=== PATIENT | male | born 1990 | race Caucasian/White ===

== ENCOUNTER 2024-04-02 12:33 | Outpatient (CLI) | payer OTHER | END 2024-04-02 23:59 | disposition home or self-care (01) | LOC: CARD DIAG 12:33 | PROVIDERS: ATTEND Chiropractor | DX: I49.9 Cardiac arrhythmia, unspecified (principal); I25.9 Chronic ischemic heart disease, unspecified | CPT/HCPCS: 93005; 93306 ==